=== PATIENT | male | born 1930 | race Caucasian/White ===

== ENCOUNTER 2017-03-25 11:03 | Outpatient (RCR) | payer MEDICARE ==
[~2017-03-25 11:03] MED LIST: ALLEGRA ALLERG180 MG PO; ALLOPURINOL100 MG PO; ASPIR 8181 MG PO; ASPIR-TRIN325 MG PO; ASPIRIN81 MG PO; AVAPRO150 MG PO; COREG3.125 MG PO; GEMFIBROZIL600 MG PO; IRBESARTAN300 MG PO; LASIX20 MG PO; LIDOCAINE VISC 2% SOLN 15 ML UDC ONE; LIDOCAINE/PRILOCAINE 2.5-2.5% KIT ONE; LIPITOR40 MG PO; LISINOPRIL2.5 MG PO; MINERAL OIL/PETROLAT/GLYCERI 6OZ BTL ONE; MUCINEX100 MG PO; OMEPRAZOLE20 MG PO; PANTOPRAZOLE SO40 MG PO; PAROXETINE HCL20 MG PO; PLAVIX75 MG PO
== END 2017-03-28 ==
LOC: WCC 11:03
PROVIDERS: ATTEND Family Medicine Adult Medicine
DX: S81.801A Unspecified open wound, right lower leg, initial encounter (principal); I82.4Y2 Acute embolism and thrombosis of unspecified deep veins of left proximal lower extremity; M10.49 Other secondary gout, multiple sites; L02.425 Furuncle of right lower limb; I87.2 Venous insufficiency (chronic) (peripheral); I70.203 Unspecified atherosclerosis of native arteries of extremities, bilateral legs; E78.2 Mixed hyperlipidemia; I10 Essential (primary) hypertension; I25.10 Atherosclerotic heart disease of native coronary artery without angina pectoris; I50.9 Heart failure, unspecified; J44.9 Chronic obstructive pulmonary disease, unspecified; K21.9 Gastro-esophageal reflux disease without esophagitis; N18.3 Chronic kidney disease, stage 3 (moderate); W01.198A Fall on same level from slipping, tripping and stumbling with subsequent striking against other object, initial encounter; Z85.46 Personal history of malignant neoplasm of prostate
CPT/HCPCS: 15271; G0463; Q4131

== ENCOUNTER 2018-11-17 11:48 | Outpatient (RCR) | payer MEDICARE ==
[~2018-11-17 11:48] MED LIST changes: -LIDOCAINE VISC 2% SOLN 15 ML UDC ONE; -LIDOCAINE/PRILOCAINE 2.5-2.5% KIT ONE; -MINERAL OIL/PETROLAT/GLYCERI 6OZ BTL ONE
[2018-11-17] MEDS ORDERED: MUPIROCIN 2% OINT 22 GM TUBE ONE (15:49)
[2018-11-17] MEDS ORDERED: LIDOCAINE VISC 2% SOLN 15 ML UDC ONE (15:49)
== END 2018-11-26 ==
LOC: WCC 11:48
PROVIDERS: ATTEND Family Medicine Adult Medicine
DX: S81.002A Unspecified open wound, left knee, initial encounter (principal); S81.801A Unspecified open wound, right lower leg, initial encounter; I70.203 Unspecified atherosclerosis of native arteries of extremities, bilateral legs; I82.4Y2 Acute embolism and thrombosis of unspecified deep veins of left proximal lower extremity; I87.2 Venous insufficiency (chronic) (peripheral); L02.425 Furuncle of right lower limb; M10.49 Other secondary gout, multiple sites; N18.3 Chronic kidney disease, stage 3 (moderate); I10 Essential (primary) hypertension; E78.2 Mixed hyperlipidemia; I25.10 Atherosclerotic heart disease of native coronary artery without angina pectoris; I50.9 Heart failure, unspecified; J44.9 Chronic obstructive pulmonary disease, unspecified; K21.9 Gastro-esophageal reflux disease without esophagitis; W01.198A Fall on same level from slipping, tripping and stumbling with subsequent striking against other object, initial encounter; Z85.46 Personal history of malignant neoplasm of prostate

== ENCOUNTER → 2018-12-19 | Outpatient (CLI) | payer MEDICARE | LOC: CARD 14:56 | PROVIDERS: ATTEND Family Medicine Adult Medicine | DX: I70.209 Unspecified atherosclerosis of native arteries of extremities, unspecified extremity (principal) | CPT/HCPCS: 93925; 93970 ==

== ENCOUNTER 2018-12-20 13:26 | Outpatient (RCR) | payer MEDICARE ==
[~2018-12-20 13:26] MED LIST changes: +MINERAL OIL/PETROLAT/GLYCERI 6OZ BTL ONE
== END 2018-12-26 ==
LOC: WCC 13:26
PROVIDERS: ATTEND Family Medicine Adult Medicine
DX: S81.002A Unspecified open wound, left knee, initial encounter (principal); S81.801A Unspecified open wound, right lower leg, initial encounter; I70.203 Unspecified atherosclerosis of native arteries of extremities, bilateral legs; I82.4Y2 Acute embolism and thrombosis of unspecified deep veins of left proximal lower extremity; I87.2 Venous insufficiency (chronic) (peripheral); L02.425 Furuncle of right lower limb; M10.49 Other secondary gout, multiple sites; N18.3 Chronic kidney disease, stage 3 (moderate); I10 Essential (primary) hypertension; E78.5 Hyperlipidemia, unspecified; I25.10 Atherosclerotic heart disease of native coronary artery without angina pectoris; I50.9 Heart failure, unspecified; J44.9 Chronic obstructive pulmonary disease, unspecified; K21.9 Gastro-esophageal reflux disease without esophagitis; Z85.46 Personal history of malignant neoplasm of prostate; W01.198A Fall on same level from slipping, tripping and stumbling with subsequent striking against other object, initial encounter

== ENCOUNTER → 2018-12-23 | Outpatient (CLI) | payer MEDICARE ==
[~2018-12-23] MED LIST changes: -MINERAL OIL/PETROLAT/GLYCERI 6OZ BTL ONE
== END ==
LOC: CARD 09:31
PROVIDERS: ATTEND Family Medicine Adult Medicine
DX: I70.208 Unspecified atherosclerosis of native arteries of extremities, other extremity (principal)
CPT/HCPCS: 93922

== ENCOUNTER 2018-12-27 14:04 | Outpatient (RCR) | payer MEDICARE | END 2019-01-26 | LOC: WCC 14:04 | PROVIDERS: ATTEND Family Medicine Adult Medicine | DX: I82.4Y2 Acute embolism and thrombosis of unspecified deep veins of left proximal lower extremity (principal); I87.2 Venous insufficiency (chronic) (peripheral); L02.425 Furuncle of right lower limb; I70.203 Unspecified atherosclerosis of native arteries of extremities, bilateral legs; M10.49 Other secondary gout, multiple sites; N18.3 Chronic kidney disease, stage 3 (moderate); I10 Essential (primary) hypertension; J44.9 Chronic obstructive pulmonary disease, unspecified; I25.10 Atherosclerotic heart disease of native coronary artery without angina pectoris; I50.9 Heart failure, unspecified; K21.9 Gastro-esophageal reflux disease without esophagitis; E78.2 Mixed hyperlipidemia; W01.198A Fall on same level from slipping, tripping and stumbling with subsequent striking against other object, initial encounter; Z85.46 Personal history of malignant neoplasm of prostate ==